=== PATIENT | female | born 1965 | race Caucasian/White ===

== ENCOUNTER 2020-09-26 18:42 | Outpatient (REF) | payer OTHER, SELFPAY | END 2020-09-26 18:43 | disposition home or self-care (01) | LOC: HO.LNP 18:42 | PROVIDERS: Visit Provider Physician Assistant | DX: N39.0 Urinary tract infection, site not specified (principal) | CPT/HCPCS: 87086 ==

== ENCOUNTER 2022-12-03 13:43 | Outpatient (REF) | payer SELFPAY ==
[2022-12-03 18:51] LABS: MANUAL DIFF FLAG NO
[2022-12-03 18:53] LABS: Basophils Percent Auto 0.5 % (0-2); Eosinophils Absolute Auto 0.1 X10*3/uL (0.0-0.4); Eosinophils Percent Auto 1.9 % (0-4); Imm Gran Abs Auto 0.01 X10*3/uL (0.00-0.03); Imm Gran Pct Auto 0.2 % (0.0-0.4); Lymphocytes Absolute Auto 1.6 X10*3/uL (1.2-4.9); Lymphocytes Percent Auto 27.3 % (20-40); Mean Corpuscular HGB Conc 32.5 g/dl (31.0-35.0); Mean Corpuscular Hemoglobin 29.5 pg (27.0-33.0); Mean Corpuscular Volume 90.9 fL (80.0-98.0); Mean Platelet Volume 12.7 fL (9.4-12.3); Monocytes Absolute Auto 0.4 X10*3/uL (0.1-1.2); Monocytes Percent Auto 7.3 % (2-11); Neutrophils Absolute Auto 3.6 x10*3/uL (2.0-8.3); Neutrophils Percent Auto 62.8 % (45-73); Platelet Count 227 X10*3/uL (160-400); Red Cell Distribution Width 12.9 % (11.0-16.0); White Blood Count 5.7 X10*3/uL (4.8-10.8)
[2022-12-03 19:16] LABS: Alanine Aminotransferase 39 U/L (0-31); Albumin Level 4.7 g/dL (3.5-5.0); Alkaline Phosphatase 62 U/L (39-117); Anion Gap 15 (12-20); Aspartate Amino Transferase 30 U/L (5-31); Bilirubin Total 0.7 mg/dL (0.0-1.0); Blood Urea Nitrogen 15 mg/dL (9-16); Calcium 10.5 mg/dL (8.4-10.2); Carbon Dioxide 25 mmol/L (22-29); Chloride 107 mmol/L (96-108); Estimated Glomerular Filt Rate > 60; Glucose Random 87 mg/dL (60-115); Potassium 4.3 mmol/L (3.3-5.1); Sodium 143 mmol/L (135-145); Total Protein 7.5 g/dL (6.5-8.0)
[2022-12-03 19:32] LABS: Free T4 (Free Thyroxine) 1.25 ng/dL (0.71-1.85); Thyroid Stimulating Hormone 0.56 uIU/mL (0.32-4.0)
[2022-12-05 16:13] LABS: Follicle Stimulating Hormone 108.8 mIU/mL; Lutenizing Hormone 68.3 mIU/mL
== END 2022-12-03 13:44 | disposition home or self-care (01) ==
LOC: HO.MANLDS 13:43
PROVIDERS: Visit Provider Physician Assistant
DX: R61 Generalized hyperhidrosis (principal)
CPT/HCPCS: 36415; 80053; 83001; 83002; 84439; 84443; 85025

== ENCOUNTER 2023-08-19 08:30 | Outpatient (REF) | payer OTHER, SELFPAY ==
[2023-08-19 13:30] LABS: D Dimer High Sensitivity < 150 NG/ML
[2023-08-19 14:10] LABS: Parathyroid Hormone Intact 44.9 pg/mL (8.7-77.1)
[2023-08-19 14:15] LABS: Alanine Aminotransferase 23 U/L (0-31); Albumin Level 4.3 g/dL (3.5-5.0); Alkaline Phosphatase 68 U/L (39-117); Amylase 47 U/L (28-100); Anion Gap 12 (12-20); Aspartate Amino Transferase 21 U/L (5-31); Bilirubin Total 0.8 mg/dL (0.0-1.0); Blood Urea Nitrogen 18 mg/dL (9-16); Calcium 9.7 mg/dL (8.4-10.2); Carbon Dioxide 25 mmol/L (22-29); Chloride 108 mmol/L (96-108); Estimated Glomerular Filt Rate > 60; Gamma Glutamyl Transpeptidase 31 U/L (7-33); Glucose Random 84 mg/dL (60-115); Iron 90 mcg/dL (30-160); Lipase 18 U/L (8-78); Percent Iron Saturation 35 % (15-50); Potassium 3.9 mmol/L (3.3-5.1); Sodium 141 mmol/L (135-145); Total Iron Binding Capacity 256 mcg/dL (228-428); Total Protein 7.2 g/dL (6.5-8.0); Unsaturated Iron Binding 166 ug/dL
[2023-08-19 14:36] LABS: Ferritin 246 ng/mL (10-250); Free T4 (Free Thyroxine) 1.16 ng/dL (0.71-1.85); Thyroid Stimulating Hormone 1.11 uIU/mL (0.32-4.0)
[2023-08-25 16:24] LABS: NT-proBNP 114 pg/mL (<125)
== END 2023-08-19 08:31 | disposition home or self-care (01) ==
LOC: HO.MANLDS 08:30
PROVIDERS: Visit Provider Physician Assistant
DX: R07.89 Other chest pain (principal)
CPT/HCPCS: 36415; 80053; 82150; 82728; 82977; 83540; 83690; 83880; 83970; 84439; 84443; 85379

== ENCOUNTER 2025-05-07 09:33 | Outpatient (REF) | payer OTHER, SELFPAY ==
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
--- OUTSIDE RECORDS SUMMARY | 2025-05-07 10:20 | XMS_ITS | Encounter Summary ---
Author Organization [facility] Address [address] [place] [address] Phone Care Team Providers Care Tire Recapping Machine Operator Name Role Phone Figueroa Rudolph DO Primary Care Provider [phone] Encounter Details Date Type Department Care Team (Late st Contact Info) Description 01/11/2022 Procedure Pass [address] [address] Social History Tobacco Use Types Packs/Day Years Used Date Smoking Tobacco: Former Cigarettes Q uit: 1992 Smokeless Tobacco: Never Alcohol Use Standard Drinks/Week Comments Yes 2 (1 standard drink = 0.6 oz pur e alcohol) Comments No Sex and Gender Information Value Date Recorded Sex Assigned at Not on file Legal Sex Female 9:41 PM EDT Gender Identity Not on file Sexual Orientation Not on file documented as of this encounter Plan of Treatment Upcoming Encounters Date Type Department Care Team (Late st Contact Info) Description 10/31/2024 Procedure Pass [address] [address] 05/28/2025 9:30 AM EST Appointment [address] [address] Figueroa Rudolph, DO [address] [place] [address] documented as of this encounter Visit Diagnoses Not on filedocumented in this encounter Additional Health Concerns Infection Onset Date Last Indicated Resolved Time CoV-Risk 09/23/2022 09/23/2022 09/24/2022 4:03 PM EDT COVID-19 09/23/2022 09/23/2022 10/14/2022 1:21 AM EDT documented as of this encounter Care Teams Tire Recapping Machine Operator Relationship Specialty Start Date End Date Figueroa Rudolph [email or web address] PCP - General 06/09/17 documented as of this encounter Additional Source Comments The information contained in this document represents components of the legal health record. It is not the complete legal health record.[facility]
--- OUTSIDE RECORDS SUMMARY | 2025-05-07 10:20 | XMS_ITS | Encounter Summary ---
Author Organization [facility] Address [address] [address] Phone Care Team Providers Care Router Operator Radial Name Role Phone Figueroa Rudolph DO Primary Care Provider [phone] Encounter Details Date Type Department Care Team ([facility] st Contact Info) Description 09/08/2023 Transcribe Orders Virtual Department [address] [place] [address] Figueroa Rudolph DO [address] [facility] [address] [email or web address] Breast screening (Primary Dx) Social History Tobacco Use Types Packs/Day Years Used Date Smoking Tobacco: Former Cigarettes Q uit: 1993 Smokeless Tobacco: Never Alcohol Use Standard Drinks/Week [...] st Contact Info) Description 10/31/2024 Procedure Pass [address] [address] 05/28/2025 9:30 AM EST Appointment [address] [address] Figueroa Rudolph, DO [address] [facility] [place] [address] [email or web address] documented as of this encounter Results * BI MAMMOGRAM SCREENING WITH TOMOSYNTHESIS WITH CAD (BILATERAL) (11/21/2023 3:15 PM EDT) Anatomical Region Laterality Modality Breast Left, Breast Right, Breast Bilateral Bila teral Mammography 11/22/2023 2:05 PM EDT Impressions 11/22/2023 3:00 PM EDT No mammographic evidence of malignancy in either breast. Annual screening mammography is recommended. BI-RADS 1 NEGATIVE The patient will be notified of the results and recommendations. Narrative 11/22/2023 3:00 PM EDT BI MAMMOGRAM SCREENING WITH TOMOSYNTHESIS WITH CAD (BILATERAL) Additional patient information: Screening. COMPARISON: Comparison is made with relevant prior imaging. Breast composition: The breast tissue is heterogeneously dense which may obscure small masses. FINDINGS: No abnormal masses, suspicious calcifications, or other significant findings are identified mammographically in either breast. Procedure Note Joann Chung MD - 11/22/2023 BI MAMMOGRAM SCREENING WITH TOMOSYNTHESIS WITH CAD (BILATERAL) Additional patient information: Screening. COMPARISON: Comparison is made with relevant prior imaging. Breast composition: The breast tissue is heterogeneously dense which mayobscure small masses. FINDINGS: No abnormal masses, suspicious calcifications, or other significantfindings are identified mammographically in either breast. IMPRESSION: No mammographic evidence of malignancy in either breast. Annual screening mammography is recommended. BI-RADS 1 NEGATIVE The patient will be notified of the results and recommendations. us Figueroa Rudolph DO IMG MG EXAMS Final Result documented in this encounter Visit Diagnoses Diagnosis Breast screening- Primary Breast screening, unspecified Breast screening Breast screening, unspecified documented in this encounter Care Teams Router Operator Radial Relationship Specialty Start Date End Date Figueroa Rudolph DO PCP - General 06/09/17 documented as of this encounter Additional Source Comments The information contained in this document represents components of the legal health record. It is not the complete legal health record.[facility]
--- OUTSIDE RECORDS SUMMARY | 2025-05-07 10:20 | XMS_ITS | Data Portability ---
Author Organization [facility] Telehealth Patient Home Address [address] [place] [address] Assessment Encounter Date Assessment Date Assessment LastModified by Organization Details LastModified Time 08/17/2023 08/17/2023 Patient agreed and verbally consents to this audio and video Telehealth appt via a secure platform [email or web address] Not available 08/17/2023 15:17:04 Plan of Treatment Reminders Order Date Submit Date Provider Last Modified By Organization Details Last Modified Time Details Appointments ANNUAL EXAM 2024 09:00A M RANDALL STEWART Not available Not available Not available ANNUAL EXAM 2025 09:00A M RANDALL STEWART Not available Not available Not available Lab CMP, serum or plasma 2024 025 [facility], [address] [place] [address], [id number], 05/07/2025 09:30:51 CBC w/ auto diff 2024 025 [facility], [address] [place] [address], [id number], 05/07/2025 09:30:50 lipid panel, blood 2024 025 [facility], [address] [place] [address], [id number], 05/07/2025 09:30:51 hemoglobi n A1c, QN, blood 2024 025 [facility], [address] [place] [address], [id number], 05/07/2025 09:30:51 pro BNP (pro B-type natriuret ic peptide), serum or plasma 2023 [facility], [address] [place] [address], [id number], 08/26/2023 11:17:16 D-dimer, quant, plasma 2023 [facility], [address] [place] [address], [id number], 08/17/2023 15:21:54 iron + TIBC + ferritin, serum 2023 [facility], [address] [place] [address], [id number], 08/17/2023 15:21:54 CMP, serum or plasma 2023 [facility], [address] [place] [address], [id number], 08/22/2023 11:28:29 amylase + lipase, serum 2023 [facility], [address] [place] [address], [id number], 08/17/2023 15:21:54 gamma-glu tamyl transfera se (ggt), serum 2023 [facility], [address] [place] [address], [id number], 08/17/2023 15:21:54 PTH (parathyr oid hormone), intact + calcium, serum or plasma 2023 [facility], [address] [place] [address], [id number], 08/17/2023 15:21:54 TSH + free T4, serum 2023 024 [facility], [address] [place] [address], [id number], 08/17/2023 15:21:54 CBC w/ auto diff 2022 023 [facility], [address] [place] [address], [id number], 12/03/2022 12:40:39 TSH, serum or plasma 2022 023 [facility], [address] [place] [address], [id number], 12/03/2022 12:40:39 lh + FSH, serum 2022 023 [facility], [address] [place] [address], [id number], 12/03/2022 12:40:39 FSH (follicle -stimulat ing hormone), serum 2022 023 [facility], [address] [place] [address], 76528, 12/03/2022 12:40:39 CMP, serum or plasma 2022 023 [facility], [address] [place] [address], [id number], 12/06/2022 13:39:54 TSH + free T4, serum 2022 023 [facility], [address] [place] [address], [id number], 12/03/2022 12:40:39 Referral None recorded. Procedures None recorded. Surgeries None recorded. Imaging CT, chest, w/o contrast 2023 024 [email or web address] Not available 08/22/2023 08:21:40 MAMMO, screening , digital, bilateral 2022 023 [email or web address] Not available 04/18/2023 08:37:08 Medication Orders None recorded. Patient TargetsNo targets recorded. Patient InstructionsNo instructions recorded. Reason for Referral None Reported. Results Created Date Observation Date Name Description Value Unit Range Abnormal Flag Note LastModifiedBy Organization Detail LastModifiedTime 09/08/19 24 09/08/2023 exerc ise stres s test No observ ation record ed. [facility] [place] [address], [place], [address], 09/12/2023 14:04:22 09/22/19 24 09/22/2023 pharm acolo gic nucle ar stres s test No observ ation record ed. [facility] (Scheduling Dept) [address] [place] [address], [id number], 09/26/2023 08:48:16 09/28/19 24 09/28/2023 pharm acolo gic nucle ar stres s test No observ ation record ed. [email or web address] [place] [address] (Scheduling Dept) [address] [place] [address], [address], 09/28/2023 13:44:25 11/22/19 24 11/21/2023 MAMMO , scree savana, digit al, bilat eral No observ ation record ed. [address], [address], 11/22/2023 15:56:56 Result Notes Documentation Provider Name and Address Organization Details Recorded Time Cbc W/ Diff : bmp Figueroa Rudolph DO [address] [place], [address], [facility] 08/17/2023 08:12:10 Lab* : d-dimer Figueroa Rudolph DO [address] [place], [address], [facility] 08/17/2023 08:12:34 Problems Name Problem SNOMED Code Status Onset Date Resolution Date Notes Provider Name and Address Organization Details Recorded Time Ventricu lar prematur e beats 94859701 Active 2018 [facility] 15:50:52 History of chickenp ox 228897254 Active 2018 [facility] 15:53:23 Normal grief reaction 537056359 Active 2022 RANDALL STEWART [address] [place], [address], [facility] 3 14:31:18 Insomnia 237854849 Active 2022 RANDALL STEWART [address] [place] [address], [address], [facility] 3 14:31:35 Night sweats 19893001 Active 2022 RANDALL STEWART [address] [place] [address], [address], [facility] 3 12:30:52 Atypical chest pain 139661468 Active 2023 RANDALL STEWART [address] [place] [address], [address], [facility] 4 15:13:41 Cardiova scular stress test abnormal 958442517 Active 2023 RANDALL STEWART [address] [place] [address], [address], [facility] 4 11:13:02 Electroc ardiogra m abnormal 274920497 Active 2023 RANDALL STEWART [address] [place] [address], [address], [facility] 4 14:04:38 Problem Notes None recorded. Procedures Surgical History Date Name Laterality Status Provider Name and Address Organization Details Recorded Time 08/29/19 19 Colonoscopy completed Hanna Bergman [facility] 08/29/2018 08:59:47 09/05/19 18 Most Recent Mammogram completed Ashley Mcimllan NP, S [address] [place] [address], [address], [facility] 08/08/2018 09:38:54 06/06/19 17 Date of Last Pap Smear completed Ashley Mcmillan NP, S [address] [place] [address], [address], [facility] 08/08/2018 09:37:52 Breast Biopsy completed Ashley wheeler NP, S [address] [place] [address], [address], [facility] 08/08/2018 09:37:30 extraction of wisdom tooth completed Ashley Mcmillan NP, S [address] [place] [address], [address], [facility] 08/08/2018 09:40:52 Imaging Results None recorded. Procedure Notes None recorded. Medical Equipment None Reported. Allergies Allergen ID Allergen Name Allergen Category Reaction Reaction Severity Criticality Documentation Date Start Date Code Code System Note Provider Name and Address Organization Details Recorded Time 00195 honey bee venom environme nt Not available Not available Not available 05/07/20252023 19311 7 RxNorm Not Available liza - External Data Service - prod 03:44:46 No known drug allergies Medications Name Sig Start Date Stop Date Status Note LastModified by Organization Details LastModified Time amoxicillin 500 mg capsule Take 1 capsule every 8 hours by oral route for 10 days. 05/14 completed Not Available Not Available Not Available doxycycline hyclate 100 mg capsule 01/27 completed Not Available Not Available Not Available Anucort-HC 25 mg suppository 04/01 completed Not Available Not Available Not Available sulfamethox azole 800 mg-trimetho prim 160 mg tablet TAKE 1 TABLET BY MOUTH EVERY 12 HOURS FOR 7 DAYS 01/06 completed Not Available Not Available Not Available hydrocortis one 2.5 % topical cream with perineal applicator APPLY RECTALLY TO THE AFFECTED AREA TWICE DAILY 11/15 completed Not Available Not Available Not Available cephalexin 500 mg capsule TAKE 1 CAPSULE BY MOUTH THREE TIMES DAILY FOR 5 DAYS 11/15 completed Not Available Not Available Not Available diclofenac sodium 75 mg tablet,joselin yed release TAKE 1 TABLET BY MOUTH TWICE DAILY WITH MEALS FOR 14 DAYS 04/01 completed Not Available Not Available Not Available intrauterin e device (IUD) Take by intrauter ine route. 05/07 completed Not Available Not Available Not Available Vitals Date Recorded Body height Body mass index (BMI) Body weight Heart rate Oxygen saturation Systolic And Diastolic Provider Name and Address Organization Details Last Updated DateTime 3 157.48 cm 24.9 kg/m2 64937.5 6 g 94 /min 99 % 140/90 mm[Hg] Chyna Ross [facility] 3 11:59:11 Date Recorded Body height Body mass index (BMI) Body weight Heart rate Oxygen saturation Systolic And Diastolic Provider Name and Address Organization Details Last Updated DateTime 3 157.48 cm 24.7 kg/m2 33396.3 3 g 72 /min 99 % 130/82 mm[Hg] Katrin Girard [facility] 3 10:04:42 Date Recorded Body height Body mass index (BMI) Body weight Heart rate Oxygen saturation Systolic And Diastolic Provider Name and Address Organization Details Last Updated DateTime 4 157.48 cm 24.8 kg/m2 07575.4 8 g 78 /min 97 % 114/78 mm[Hg] America Lindquist [facility] 4 09:07:32 Date Recorded Body height Body mass index (BMI) Body weight Heart rate Oxygen saturation Systolic And Diastolic Provider Name and Address Organization Details Last Updated DateTime 5 157.48 cm 24.7 kg/m2 52388.9 7 g 70 /min 98 % 120/70 mm[Hg] Chyna Ross [facility] 5 09:00:49 Social History Question Answer Notes LastModified by Organizat ion Details LastModified Time Tobacco Smoking Status Former Smoker smoked in high school Kalegih hernandez [facility] 08/08/2018 09:33:48 What Was The Date Of Your Most Recent Tobacco Screening? 05/07/2025 [email or web address] Information not available 05/07/2025 Sex: Female Functional Status None recorded. Mental Status None recorded. Family History Relationship Description Onset Age of this Age Resolved Age Notes LastModified by Organization Details LastModified Time Mother Malignant neoplasm of breast 67 [email or web address] Not available 2018 15:55:32 Father Depressive disorder 65 [email or web address] Not available 2018 15:55:56 Father Suicide 65 [email or web address] Not available 08/07/2018 15:56:43 Maternal Grandmother Myocardial infarction tbalicki Not available 08/07 15:57:06 Paternal Grandmother Myocardial infarction tbalicki Not available 08/07 16:00:07 Medical History Condition Response Coronary Artery Disease N Gout N Kidney Stones N Blood Diseases N Hyperthyroidism N Blood Transfusion N COPD N Depression N Anxiety Disorder N Muscle, Joint, or Bone Problems N Obesity N Arthritis N Infertility N Cancer N Varicosities N Stroke N Headaches N Fibromyalgia N Kidney Disease N Heart Problems N Eating Disorder N Skin Problems N Constipation N Tuberculosis N Asthma N Hepatitis N Pulmonary Embolism N Chicken Pox Y Breast Cancer N Hypothyroidism N Defects or Inherited Disease N Difficulty Swallowing N Anesthesia Complications N Bladder or Kidney Problems N High Cholesterol N Liver Disease N Allergies/Hayfever Y Thyroid Problems N GI Problems N Anemia N Diabetes N Seizures/Epilepsy N Congestive Heart Failure (CHF) N Eczema N Abuse/Domestic Violence N Diverticulitis N Reflux/GERD N Heart Disease N Hypertension N Gynecological History Statement/Question Response If Post Menopausal, Age at Menopause Abnormal Pap N HPV Vaccine N Date of Last Pap Smear 06/06/2016 Most Recent Mammogram 09/04/2017 Age at Menarche 14 Age at First Child 28 Obstetrics History GPAL:G 0 P 0 0 0 0 Past Encounters Encounter ID Performer Location Encounter Start Date Encounter Closed Date Diagnosis/Indication Diagnosis SNOMED-CT Code Diagnosis ICD10 Code Diagnosis IMO Codes Diagnosis Note [id number] Figueroa Rudolph DO [facility] [address] [place] [address] 08/08/2018 09:22:02 08/08/2018 11:38:06 Adult health examination 278598675 Z00.00 Active or passive immunization 316264498 Z23 Screening procedure 2012 5006 Z13.9 [id number] Figueroa Rudolph [facility] [address] [place] [address] 09/22/2018 10:09:22 09/22/2018 12:19:38 Acute pharyngitis 785655125 J02.9 given progressiv e nature of her symptoms and lack of any nasal viral symptoms i believe this is a bacterial will tx with amox [id number] Figueroa Rudolph [facility] [address] [place] [address], [facility] [place] [address] 05/14/2019 16:33:03 05/14/2019 16:58:50 Plantar fasciitis of right foot 2973700212 5471457 M72.2 Bursitis and fasciitis on right ongoing for several months [id number] Figueroa Rudolph [facility] [address],[place] [address] 01/28/2020 09:15:43 01/28/2020 09:54:08 Adult health examination 804439152 Z00.00 no concerns today Active or passive immunization 729929284 Z23 will set her up for shingrix series at pharmacy [id number] Figueroa TellezRosita Rudolph [facility] [address], ite [place] [address] 09/26/2020 14:49:38 09/29/2020 08:41:11 Acute urinary tract infection 675752880 N39.0 Dipstick has bacteria in it with blood given symptoms will treat for UTI [id number] Figueroa Fonseca Klaudia [facility] [address],[place] [address] 01/06/2021 13:49:12 01/06/2021 14:23:23 Left lateral elbow tendinopathy 2845190273 86785 M77.12 fu if no improvemen t [id number] Figueroa Zhangkraig [facility] [address],[place] [address] 11/15/2022 14:01:19 11/15/2022 15:40:38 Normal grief reaction 464933707 F43.21 following with her therapist Insomnia 839638495 G47.0 1 agreed to trying valerian root and melatonin [id number] Figueroa Raymundo Rudolph [facility] [address], [place] [address] 12/03/2022 11:53:19 12/06/2022 08:07:16 Night sweats 77245556 R61 per her specialist , f/u with lab work due to night sweats Normal grief reaction 27 2336473 F43.21 following with her therapistd oing well with her right night [id number] Figueroa Rudolph [facility] [address] [facility] [address] [address] 04/01/2023 09:59:19 04/01/2023 13:22:37 Normal grief reaction 477609525 F43.21 doing well Screening mammography 24 994903 Z12.31 need to routine MM Adult [facility] examination 113870972 Z00.00 no concerns today [id number] Figueroa Rudolph [facility] [address] [facility] [address],[place] [address] 08/17/2023 11:12:08 08/17/2023 15:20:57 Atypical chest pain 514470075 R07.89 will set up with lab work and CT chest pain [id number] Figueroa Rudolph [facility] [address] [facility] [address],[place] [address] 04/09/2024 09:01:57 04/09/2024 09:26:19 Active or passive immunization 610154709 Z23 will set her up for shingrix series at pharmacy [facility] examination 183053290 Z00.00 no concerns today Depression screening 171 142138 Z13.31 SCREENING NEGATIVE [id number] Figueroa Zhangkraig [facility] [address] [facility] [address],[place] [address] 05/07/2025 08:53:49 05/07/2025 09:30:23 General examination of patient 026830210 Z00.00 320520 no concerns today Health Concerns Section Related Observation LastModified by Organization Detai ls LastModified Time None Recorded Concern Status LastModified by Organization Details LastModified Time None Recorded Advance Directives Directive None Recorded Payers Insurance Date Sequence Insurance Name Policy Number Policy Dasilva Covered Member ID Dasilva Member ID Guarantor Name 05/06/[address] [place] [address] [id number] Carly Liang [id number] Carly Liang Notes Date Note Type Note Provider Name a nd Address Organization Details Recorded Time 3 text/html ROS as noted in the HPI 3 week f/u the patient is doing okay the patient is still dealing with grief and her anger with her who from an [place] and was found after the fact to have been cheating on her with multiple partners discussed her mood; she is coping pretty well given the circumstancesshe does have a good support system with her friends pt children is not aware of the circumstances around his discussed her feelings around the patient's deathdoes feel very resentful which is normal brought his records from the hospital she was given just to discuss her feeling better with some medical info prior to his overall working with her therapist which is helping tremendously RANDALL STEWART [address] [place], [address], [facility] 12/03/2022 12:49:27 3 text/html Annual WellnessReported by PatientSocial/Behavio ral HistoryFor diet and nutrition, patient reportshealthy diet. For fracture risk, patient reportsno history of fractures,no recent explained fracture,no sudden unexplained fractures, andno previous musculoskeletal injuries. For physical activity, patient reportsexercises on a regular basis,recent increase in physical activity, andgood physical condition. For additional lifestyle factors, patient reportsno tobacco use,no alcohol intake, andstopped drinking alcohol.Mental Status:For depression risk, patient reportsnever feels sad, empty, or tearful,no loss of interest in activities,no significant changes in weight,no sleep disturbances or insomnia,no agitation,no loss of energy,no feelings of worthlessness or guilt,no thoughts of suicide,no history of depression, andno history of mood disorders.Functional AbilityFor hearing, patient reportsno loss of hearing. For vision, patient reportsno vision problems.ROS as noted in the HPI f/u appointment anxiety and depression the patient's mother just diedshe is doing okay, her mother was 100 years old she is working with her therapistdoes have a cold, but COVID-19 negative needs screening MMdoing well sleeping okay RANDALL STEWART [address] [place], [address], [facility] 04/01/2023 10:30:06 4 text/html ROS as noted in the HPI ER f/u The patient is participating in this appointment via telemedicine communication with a phone call/video calling service (Doxy)The patient consents to use of these platforms in place of an in-person appointment due to either sick symptoms the patient is presenting with or current office closure due to COVID exposure in order to keep our office staff and patients safe the patient flew back from [place], then developed chest pain while she was laying in bedthe patient reports that it felt lke a pressure on the center of her chest, no other symptoms went to the ERMI r/o was negativeno signs or results suggestive of cardiac pathology worsened with bending over, laying flat the patient reports that the pain is above her bilateral breasts the patient only had the symptoms last nightnothing in [place] RANDALL STEWART [address] [place], [address], [facility] 08/17/2023 15:19:54 4 text/html Annual WellnessReported by PatientSocial/Behavio ral HistoryFor diet and nutrition, patient reportshealthy diet,discussed vitamin and supplement use,discussed portion control,discussed maintaining calcium balance, anddiscussed diet improvement. For fracture risk, patient reportsno history of fractures,no recent explained fracture,no sudden unexplained fractures, andno previous musculoskeletal injuries. For physical activity, patient reportsexercises on a regular basis,recent increase in physical activity, andgood physical condition. For additional lifestyle factors, patient reportsno tobacco useanddrinks alcohol (mild-moderate).Menta l Status:For depression risk, patient reportsnever feels sad, empty, or tearful,no loss of interest in activities,no significant changes in weight,no sleep disturbances or insomnia,no agitation,no loss of energy,no feelings of worthlessness or guilt,no thoughts of suicide,no history of depression, andno history of mood disorders.Functional AbilityFor hearing, patient reportsno loss of hearing. For vision, patient reportsno vision problems.ROS as noted in the HPI the patient reports that her mood as been the patient reports that she had her blepharoplasty which went very wellfinished with her post-op visitations she still has some anger related to her but otherwise is finding trinh again in her life RANDALL STEWART [address] [place], [address], [facility] 04/09/2024 09:25:52 5 text/html Annual WellnessReported by PatientSocial/Behavio ral HistoryFor diet and nutrition, patient reportshealthy diet,discussed vitamin and supplement use,discussed portion control,discussed maintaining calcium balance, anddiscussed diet improvement. For fracture risk, patient reportsno history of fractures,no recent explained fracture,no sudden unexplained fractures, andno previous musculoskeletal injuries. For physical activity, patient reportsexercises on a regular basis,recent increase in physical activity,good physical condition,discussed weightbearing activities, anddiscussed exercise habits. For additional lifestyle factors, patient reportsno tobacco useanddrinks alcohol (mild-moderate).Menta l Status:For depression risk, patient reportsnever feels sad, empty, or tearful,no loss of interest in activities,no significant changes in weight,no sleep disturbances or insomnia,no agitation,no loss of energy,no feelings of worthlessness or guilt,no thoughts of suicide,no history of depression, andno history of mood disorders.Functional AbilityFor hearing, patient reportsno loss of hearing. For vision, patient reportsno vision problems.ROS as noted in the HPI BP is excellent MM scheduled 05/28/25 RANDALL STEWART [address] [place], [address], [facility] 05/07/2025 09:28:35 OBGyn Episode No OBEpisode recorded.
--- OUTSIDE RECORDS SUMMARY | 2025-05-07 10:20 | XMS_ITS | Encounter Summary ---
Author Organization [facility] Address [address] [facility] [address] [place] [address] Phone Care Team Providers Care Poultry Hatchery Man Name Role Phone Figueroa Rudolph DO Unavailable Dimple Mckeon LIQUOR STORES AND AGENCIES SUPERVISOR Unavailable [phone] Kemar Molina MD Unavailable [phone] Sravani Gutiérrez LIQUOR STORES AND AGENCIES SUPERVISOR Unavailable [phone] Bigg Romero MD Unavailable White EarthAna klein DO Unavailable Lan Oropeza MD Unavailable [phone] Arnoldo Jones MD Unavailable [phone] Clotilde Mclaughlin MD Unavailable Figueroa Rudolph DO Primary Care Provider [phone] Encounter Details Date Type Department Care Team (Late st Contact Info) Description 09/19/2017 Ancillary Orders [facility] [address] [place] [address] Jose Solomon MD [address] [facility], [address] [place] [address] [email or web address] Abnormal mammogram Social History Tobacco Use Types Packs/Day Years Used Date Smoking Tobacco: Former Cigarettes Q uit: 1993 Smokeless Tobacco: Never Alcohol Use Standard Drinks/Week Comments Yes 0 (1 standard drink = 0.6 oz pur e alcohol) Comments No Sex and Gender Information Value Date Recorded Sex Assigned at Not on file Legal Sex Female 9:41 PM EDT Gender Identity Not on file Sexual Orientation Not on file documented as of this encounter Plan of Treatment Upcoming Encounters Date Type Department Care Team (Late st Contact Info) Description 10/31/2024 Procedure Pass [address] [address] 05/28/2025 9:30 AM EST Appointment [address] [address] Figueroa Rudolph DO 179 [facility] [place] [address] [email or web address] documented as of this encounter Results * BI US BREAST LIMITED (RIGHT) (09/23/2017 2:04 PM EDT) Anatomical Region Laterality Modality Breast Right, Breast Bilateral Right U ltrasound 09/23/2017 1:32 PM EDT Impressions 09/23/2017 1:58 PM EDT Follow-up mammogram views and ultrasonography confirms the presence of a cyst in the area of concern evident on screening mammography. No adverse features are seen. No findings of concern for malignancy are evident. The patient can resume routine mammography. The results were given to the patient at the time of the examination. BI-RADS CATEGORY: 2 - Benign finding. DENSITY: The breast tissue is extremely dense, an appearance which could obscure a lesion on mammography. S/S: Developing density right breast, right breast cyst POS [id number] Narrative 09/23/2017 1:58 PM EDT Full field digital mammography was obtained with computer-aided detection. There is extremely dense fibroglandular tissue evident in the breast. 2-D C view images obtained as well as tomosynthesis images in two projections of the right breast. True lateral, spot compression craniocaudad and spot compression true lateral views of the right breast are obtained in 2-D and 3-D acquisitions. Comparison with prior imaging from 09/16/2017 is made with older imaging dating back as far as 10/06/2007 also reviewed. The exam is performed because of a new 1 cm density identified in the upper right breast. The 1 cm rounded density persists in the approximate 10 o'clock position of the right breast. The appearance is most consistent with a cyst. No associated calcifications are seen. No architectural distortion is evident. No skin changes are seen. Ultrasound of the area is subsequently obtained. In the 11 o'clock position approximately 2 to 3 cm from the nipple there is a 9 mm anechoic mass with through-transmission consistent with a simple cyst. This corresponds well in size and position with the finding on mammography. Other adjacent cysts are evident during scanning is well. us Jose Solomon MD IMG US BREAST Final Result * BI MAMMOGRAM DIAGNOSTIC WITH TOMOSYNTHESIS WITH CAD (RIGHT) (09/23/2017 1:27 PM EDT) Anatomical Region Laterality Modality Breast Right, Breast Bilateral Right M ammography 09/23/2017 1:32 PM EDT Impressions 09/23/2017 1:58 PM EDT Follow-up mammogram views and ultrasonography confirms the presence of a cyst in the area of concern evident on screening mammography. No adverse features are seen. No findings of concern for malignancy are evident. The patient can resume routine mammography. The results were given to the patient at the time of the examination. BI-RADS CATEGORY: 2 - Benign finding. DENSITY: The breast tissue is extremely dense, an appearance which could obscure a lesion on mammography. S/S: Developing density right breast, right breast cyst POS [id number] Narrative 09/23/2017 1:58 PM EDT Full field digital mammography was obtained with computer-aided detection. There is extremely dense fibroglandular tissue evident in the breast. 2-D C view images obtained as well as tomosynthesis images in two projections of the right breast. True lateral, spot compression craniocaudad and spot compression true lateral views of the right breast are obtained in 2-D and 3-D acquisitions. Comparison with prior imaging from 09/16/2017 is made with older imaging dating back as far as 10/06/2007 also reviewed. The exam is performed because of a new 1 cm density identified in the upper right breast. The 1 cm rounded density persists in the approximate 10 o'clock position of the right breast. The appearance is most consistent with a cyst. No associated calcifications are seen. No architectural distortion is evident. No skin changes are seen. Ultrasound of the area is subsequently obtained. In the 11 o'clock position approximately 2 to 3 cm from the nipple there is a 9 mm anechoic mass with through-transmission consistent with a simple cyst. This corresponds well in size and position with the finding on mammography. Other adjacent cysts are evident during scanning is well. us Jose Solomon MD IMG MG EXAMS Final Result documented in this encounter Visit Diagnoses Diagnosis Abnormal mammogram Abnormal mammogram, unspecified Abnormal mammogram Abnormal mammogram, unspecified Abnormal mammogram Abnormal mammogram, unspecified documented in this encounter Additional Health Concerns Infection Onset Date Last Indicated Resolved Time CoV-Risk 06/30/2021 06/30/2021 07/01/2021 4:29 PM EST CoV-Presumed 06/30/2021 06/30/2021 07/21/2021 1:22 AM EST CoV-Risk 09/23/2022 09/23/2022 09/24/2022 4:03 PM EDT COVID-19 09/23/2022 09/23/2022 10/14/2022 1:21 AM EDT documented as of this encounter Care Teams Poultry Hatchery Man Relationship Specialty Start Date End Date Figueroa Rudolph DO [address] [address] PCP - General 06/09/17 Figueroa Rudolph DO 179 [place] [address] Historical LMR Provider 03/21/17 06/13/21 Dimple Mckeon NP [address] [place] [address] Historical LMR Provider 03/21/17 2 Kemar Molina MD [address] [place] [address] [email or web address] Historical LMR Provider 03/21/17 06/13/21 Sravani Gutiérrez NP [address] [place] [address] [email or web address] Historical LMR Provider 03/21/17 2 Bigg Romero MD [address] [place] [address] [email or web address] Historical LMR Provider 03/21/17 06/13/21 Ana Law DO 30 [place] [address] Historical LMR Provider 03/21/17 2 Lan Oropeza MD [address] [place] [phone] Historical LMR Provider 03/21/17 2 Arnoldo Jones MD 61 [place] [address] Historical LMR Provider 03/21/17 2 Clotilde Mclaughlin MD [address] [address] [email or web address] Historical LMR Provider 03/21/17 06/13/21 documented as of this encounter Additional Source Comments The information contained in this document represents components of the legal health record. It is not the complete legal health record.[facility]
--- OUTSIDE RECORDS SUMMARY | 2025-05-07 10:20 | XMS_ITS | Encounter Summary ---
Author Organization [facility] Address [address] [place] [address] [place] [address] Phone Care Team Providers Care Official Court Interpreter Name Role Phone Figueroa Rudolph Primary Care Provider [phone] Encounter Details Date Type Department Care Team (Late st Contact Info) Description 09/08/2023 Procedure Pass [facility], [address] [address] Social History Tobacco Use Types Packs/Day Years Used Date Smoking Tobacco: Former Cigarettes 0.5 10 1 983 - 1993 Smokeless Tobacco: Never Alcohol Use Standard [...] st Contact Info) Description 10/31/2024 Procedure Pass [address] [address] 05/28/2025 9:30 AM EST Appointment [address] [address] Figueroa Rudolph DO 179 [facility] [place] [address] [email or web address] documented as of this encounter Visit Diagnoses Not on filedocumented in this encounter Care Teams Official Court Interpreter Relationship Specialty Start Date End Date Figueroa Rudolph DO [email or web address] PCP - General 06/09/17 documented as of this encounter Additional Source Comments The information contained in this document represents components of the legal health record. It is not the complete legal health record.[facility]
--- OUTSIDE RECORDS SUMMARY | 2025-05-07 10:20 | XMS_ITS | Encounter Summary ---
Author Organization [facility] Address [address] [place] [address] [place] [address] Phone Care Team Providers Care Dolly Driver Name Role Phone Figueroa Rudolph DO Unavailable Dimple Mckeon TEAMSITE DEVELOPER Unavailable Kemar Molina MD Unavailable [phone] Sravani Gutiérrez TEAMSITE DEVELOPER Unavailable [phone] Bigg Romero MD Unavailable Ana Law DO Unavailable Lan Oropeza MD Unavailable Arnoldo Jones MD Unavailable [phone] Clotilde Mclaughlin MD Unavailable Figueroa Rudolph DO Primary Care Provider [phone] Encounter Details Date Type Department Care Team (Late st Contact Info) Description 01/07/2021 Procedure Pass [facility], [facility] 30 [place] [address] Social History Tobacco Use Types Packs/Day Years [...] st Contact Info) Description 10/31/2024 Procedure Pass [address] [address] 05/28/2025 9:30 AM EST Appointment [address] [address] Figueroa Rudolph DO 179 [place] [address] [email or web address] documented as of this encounter Visit Diagnoses Not on filedocumented in this encounter Additional Health Concerns Infection Onset Date Last Indicated Resolved Time CoV-Risk 06/30/2021 06/30/2021 07/01/2021 4:29 PM EST CoV-Presumed 06/30/2021 06/30/2021 07/21/2021 1:22 AM EST CoV-Risk 09/23/2022 09/23/2022 09/24/2022 4:03 PM EDT COVID-19 09/23/2022 09/23/2022 10/14/2022 1:21 AM EDT documented as of this encounter Care Teams Dolly Driver Relationship Specialty Start Date End Date Figueroa Rudolph DO [address] [place] [address] PCP - General 06/09/17 Figueroa Rudolph DO 179 [place] [address] Historical LMR Provider 03/21/17 06/13/21 Dimple Mckeon NP [address] [place] [address] Historical LMR Provider 03/21/17 2 Kemar Molina MD [address] [place] [address] [email or web address] Historical LMR Provider 03/21/17 06/13/21 Sravani Gutiérrez NP 21 [place] [address] [email or web address] Historical LMR Provider 03/21/17 2 Bigg Romero MD [address] [address] [email or web address] Historical LMR Provider 03/21/17 06/13/21 Ana Law DO 30 [place] [address] Historical LMR Provider 03/21/17 2 Lan Oropeza MD [address] [place] [phone] Historical LMR Provider 03/21/17 2 Arnoldo Jones MD 61 [place] [address] Historical LMR Provider 03/21/17 2 Clotilde Mclaughlin MD [address] [address] [email or web address] Historical LMR Provider 03/21/17 06/13/21 documented as of this encounter Additional Source Comments The information contained in this document represents components of the legal health record. It is not the complete legal health record.[facility]
--- OUTSIDE RECORDS SUMMARY | 2025-05-07 10:20 | XMS_ITS | Encounter Summary ---
Author Organization [facility] Address [address] [facility] [address] [place] [address] Phone Care Team Providers Care Surveying Crew Rodman Name Role Phone Figueroa Rudolph DO Unavailable Dimple Mckeon HELICOPTER SPECIALIST Unavailable [phone] Kemar Molina MD Unavailable [phone] Sravani Gutiérrez HELICOPTER SPECIALIST Unavailable [phone] Bigg Romero MD Unavailable McalesterAna klein DO Unavailable Lan Oropeza MD Unavailable Arnoldo Jones MD Unavailable [phone] Clotilde Mclaughlin MD Unavailable Figueroa Rudolph DO Primary Care Provider [phone] Encounter Details Date Type Department Care Team (Late st Contact Info) Description 09/19/2017 Ancillary Orders [facility] [address] [place] [address] Jose Solomon MD 22 [facility], [address] [place] [address] Social History Tobacco Use Types Packs/Day Years [...] st Contact Info) Description 10/31/2024 Procedure Pass [address] [address] 05/28/2025 9:30 AM EST Appointment [address] [address] Figueroa Rudolph DO 179 [place] [address] documented as of this encounter Visit Diagnoses Not on filedocumented in this encounter Additional Health Concerns Infection Onset Date Last Indicated Resolved Time CoV-Risk 06/30/2021 06/30/2021 07/01/2021 4:29 PM EST CoV-Presumed 06/30/2021 06/30/2021 07/21/2021 1:22 AM EST CoV-Risk 09/23/2022 09/23/2022 09/24/2022 4:03 PM EDT COVID-19 09/23/2022 09/23/2022 10/14/2022 1:21 AM EDT documented as of this encounter Care Teams Surveying Crew Rodman Relationship Specialty Start Date End Date Figueroa Rudolph DO [address] [place] [address] PCP - General 06/09/17 Figueroa Rudolph DO 179 [place] [address] Historical LMR Provider 03/21/17 06/13/21 Dimple Mckeon NP [address] [place] [address] Historical LMR Provider 03/21/17 2 Kemar Molina MD [address] [place] [address] [email or web address] Historical LMR Provider 03/21/17 06/13/21 Sravani Gutiérrez NP 21 [place] [address] [email or web address] Historical LMR Provider 03/21/17 2 Bigg Romero MD [address] [place] [address] [email or web address] Historical LMR Provider 03/21/17 06/13/21 Ana Law DO 30 [place] [address] Historical LMR Provider 03/21/17 2 Lan Oropeza MD [address] [place] [phone] Historical LMR Provider 03/21/17 2 Arnoldo Jones MD 61 [place] [address] Historical LMR Provider 03/21/17 2 Clotilde Mclaughlin MD [address] [address] [email or web address] Historical LMR Provider 03/21/17 06/13/21 documented as of this encounter Additional Source Comments The information contained in this document represents components of the legal health record. It is not the complete legal health record.[facility]
--- OUTSIDE RECORDS SUMMARY | 2025-05-07 10:20 | XMS_ITS | Encounter Summary ---
Author Organization [facility] Address [address] [facility] [address] [place] [address] Phone Care Team Providers Care Speed Belt Sander Name Role Phone Figueroa Rudolph DO Primary Care Provider [phone] Encounter Details Date Type Department Care Team (Latest Contact Info) Description 08/30/2023 Transcribe Orders Virtual Department 30 [place] [address] Astrid Salas PA [address] [place] [address] [place] [address] Other chest pain (Primary Dx) Social History Tobacco Use Types [...] st Contact Info) Description 10/31/2024 Procedure Pass [address] [address] 05/28/2025 9:30 AM EST Appointment [address] [address] Figueroa Rudolph DO [address] [place] [address] [email or web address] documented as of this encounter Visit Diagnoses Diagnosis Other chest pain- Primary documented in this encounter Care Teams Speed Belt Sander Relationship Specialty Start Date End Date Figueroa Rudolph DO [email or web address] PCP - General 06/09/17 documented as of this encounter Additional Source Comments The information contained in this document represents components of the legal health record. It is not the complete legal health record.[facility]
--- OUTSIDE RECORDS SUMMARY | 2025-05-07 10:20 | XMS_ITS | Encounter Summary ---
Author Organization [facility] Address [address] [facility] [address] [place] [address] Phone Care Team Providers Care Office Rep Name Role Phone Figueroa Rudolph Rosalinda TURCIOS Primary Care Provider [phone] Reason for Referral * MRI/CAT Scan - Closed Specialty Diagnoses / Procedures Referred By Contbala t Referred To Contact Radiology Diagnoses Abnormal result of other cardiovascular function study Procedures NC Stress Result for Nuclear Stress Test Astrid Salas PA [address] [facility] [place] [address] Phone: tel: fax: Referral ID Status Reason Start Date Expiration Date Visits Re quested Visits Authorized [id number] Closed 09/22/2023 09/21/2024 1 1 Encounter Details Date Type Department Care Team (Latest Contact Info) Description 09/22/2023 Ancillary Orders Virtual Department 30 [place] [address] Astrid Salas PA [address] [facility] [place] [address] Abnormal result of other cardiovascular function study (Primary Dx) Social History Tobacco Use Types [...] st Contact Info) Description 10/31/2024 Procedure Pass [address] [address] 05/28/2025 9:30 AM EST Appointment [address] [address] Figueroa Rudolph, DO 179 [facility] [place] [address] documented as of this encounter Results * NC Stress Result for Nuclear Stress Test (09/22/2023 11:43 AM EDT) Max Predicted Heart Rate 162 bpm [facility] Max BP Systolic 152 mmHg [facility] Max BP Diastolic 68 mmHg [facility] Max HR 148 BPM [facility] Resting HR 76 BPM [facility] Resting BP Systolic 110 mmHg [facility] Resting BP Diastolic 72 mmHg [facility] Peak METS 13.4 METS [facility] Peak HR 148 BPM [facility] Anatomical Region Laterality Modality Heart Other 09/22/2023 9:55 AM EDT 09/22/2023 11:37 AM EDT Narrative 09/22/2023 3:23 PM EDT Stress Findings The resting heart rate was 76 BPM. The resting BP was 110/72 mmHg. A peak heart rate of 148 BPM (148 BPM of max predicted heart rate) was achieved. Max age of predicted heart rate was 162 bpm. ECG REPORT- Pt exercised for 10:22 min on a MARANDA protocol achieving 13.40 METS. Test terminated due to fatigue. Baseline resting HR was 76 bpm. Max heart rate achieved was 148 bpm (91% MPHR). 1. EKG - Baseline EKG showed sinus bradycardia. During exercise, there were up to 1mm horizontal ST depressions V3 through V6. 2. SYMPTOMS - No chest pain. 3. EXERCISE PHYSIOLOGY - High functional capacity for age. BP 110/72 at rest, BP 152/68 at peak exercise, BP 120/74 upon discharge from the stress lab. 4. ARRHYTHMIAS - Rare isolated PVC in recovery. Conclusion - Abnormal EKG portion of stress test with EKG evidence suggestive of ischemia and without symptoms concerning for angina. High functional capacity for age noted. Nuclear images pending and will be reported separately. See attached stress report for full details. Yeni Marroquin PA-C with Dr. Cruz Response to Stress The patient exercised for minutes and seconds, achieving 13.4 METS at peak exercise. Baseline blood pressure was 110/72 mmHg, and baseline heart rate was 76 bpm. The patient achieved a peak heart rate of 148 bpm, which is% of their maximum predicted heart rate. Astrid PEREIRA CV NM CARDIAC Final Resul t documented in this encounter Visit Diagnoses Diagnosis Abnormal result of other cardiovascular function study- Primary Abnormal result of other cardiovascular function study documented in this encounter Care Teams Office Rep Relationship Specialty Start Date End Date Figueroa Rudolph DO [email or web address] PCP - General 06/09/17 documented as of this encounter Additional Source Comments The information contained in this document represents components of the legal health record. It is not the complete legal health record.[facility]
--- OUTSIDE RECORDS SUMMARY | 2025-05-07 10:20 | XMS_ITS | Encounter Summary ---
Author Organization [facility] Address [address] [facility] [address] [place] [address] Phone Care Team Providers Care Gold Frame Assembler Name Role Phone Figueroa Rudolph Rosalinda TURCIOS Primary Care Provider [phone] Reason for Referral * MRI/CAT Scan - Closed Specialty Diagnoses / Procedures Referred By Contbala t Referred To Contact Radiology Diagnoses Abnormal result of other cardiovascular function study Procedures NC Myocardial Perfusion Pharmacologic Stress Multiple CHG MYOCARDIAL SPECT MULTIPLE STUDIES Astrid Salas PA [address] [facility] [place] [address] Phone: tel: fax: Referral ID Status Reason Start Date Expiration Date Visits Re quested Visits Authorized [id number] Closed 09/12/2023 11/11/2023 4 4 Encounter Details Date Type Department Care Team (Latest Contact Info) Description 09/12/2023 Transcribe Orders Virtual Department [address] [place] [address] Astrid Salas PA [address] [facility] [place] [address] Abnormal result of other cardiovascular function study [...] Contact Info) Description 10/31/2024 Procedure Pass [address] [address] 05/28/2025 9:30 AM EST Appointment [address] [address] Figueroa Rudolph, DO [address] [facility] [place] [address] [email or web address] documented as of this encounter Results * NC Myocardial Perfusion Pharmacologic Stress Multiple (09/22/2023 11:03 AM EDT) Anatomical Region Laterality Modality Heart, Vascular Nuclear Medicine 09/22/2023 1:24 PM EDT Impressions 09/22/2023 1:32 PM EDT No evidence of left ventricular ischemia. Normal left ventricular wall motion. Ejection fraction = 73%. POS -[id number] Narrative 09/22/2023 1:32 PM EDT HISTORY : Abnormal stress test. Question flow-limiting coronary artery disease. COMPARISON: None. TECHNIQUE: Single day study. Patient exercised following the protocol 10 minutes 22 seconds achieving heart rate elevation from 76 bpm up to 148 bpm, 91% maximal predicted heart rate. Exercise stopped due to fatigue. No diagnostic EKG changes. DOSE: Rest dose 10.1 mCi T c-99m sestamibi, Stress dose 30.3 mCi Tc-99m sestamibi FINDINGS: There appears to be normal distribution of tracer throughout the left ventricular myocardium on both stress and rest. Normal left ventricular wall motion noted. End diastolic volume 53 cc and end systolic volume 14 cc. Ejection fraction appears preserved, calculated at 73%. Stress Findings Max age of predicted heart rate was 162 bpm. Procedure Note Lam Salazar MD - 09/28/2023 HISTORY : Abnormal stress test. Question flow-limiting coronary arterydisease. COMPARISON: None. TECHNIQUE: Single day study. Patient exercised following the Bruceprotocol 10 minutes 22 seconds achieving heart rate elevation from 76 bpmup to 148 bpm, 91% maximal predicted heart rate. Exercise stopped due tofatigue. No diagnostic EKG changes. DOSE: Rest dose 10.1 mCi T c-99m sestamibi, Stress dose 30.3 mCi Tc-99msestamibi FINDINGS: There appears to be normal distribution of tracer throughout the leftventricular myocardium on both stress and rest. Normal left ventricular wall motion noted. End diastolic volume 53 cc andend systolic volume 14 cc. Ejection fraction appears preserved,calculated at 73%. IMPRESSION: No evidence of left ventricular ischemia. Normal left ventricular wallmotion. Ejection fraction = 73%. POS -[id number] Astrid PEREIRA CV NM CARDIAC Final Resul t documented in this encounter Visit Diagnoses Diagnosis Abnormal result of other cardiovascular function study- Primary Abnormal result of other cardiovascular function study documented in this encounter Care Teams Gold Frame Assembler Relationship Specialty Start Date End Date Figueroa Rudolph DO PCP - General 06/09/17 documented as of this encounter Additional Source Comments The information contained in this document represents components of the legal health record. It is not the complete legal health record.[facility]
--- OUTSIDE RECORDS SUMMARY | 2025-05-07 10:20 | XMS_ITS | Clinical Summary ---
Author Organization [facility] Address [address] [place] [address] Phone Care Team Providers Care Rotary Rig Engine Operator Name Role Phone Lauro Sparks Primary Care Provider [phone] Allergies Active Allergy Reactions Criticality Noted Date Comments Venom-Honey Bee 08/16/2023 Medications calcium carbonate (OS-KALLI) 1,500 mg (600 mg elemental) tablet 1 tablet with food daily Active multivitamins with iron-folic acid (CENTRUM COMPLETE) 18-400 mg-mcg Tab as directed daily Active Active Problems Problem Noted Date Diagnosed Date Night sweats 12/03/2022 03/02/2023 Insomnia 11/15/2022 03/02/2023 Changing skin lesion 11/11/2022 11/11/2022 Palpitations 11/11/2022 11/11/2022 History of chickenpox 08/07/2018 11/11/2022 Ventricular premature beats 08/07/2018 06/01/2023 IUD (intrauterine device) in place 08/16/2017 Assessment & Plan (08/16/2017 3:49 PM EDT): Mirena 03/18 Family history of breast cancer Overview (12/26/2019): Mother and sister Assessment & Plan (12/26/2019 2:02 PM EDT): Advised asking sister if BRCA tested; offered/ suggested med onc consult, declined for now Immunizations Immunization Administration Dates Next Due COVID-19 (Pre-10/23) Pfizer Vaccine, mRNA, PF Family History Medical History Relation Comments Hyperlipidemia Brother Suicide Father ALS Maternal Grandfather CV disease Maternal Grandmother Heart attack Maternal Grandmother Breast cancer Mother CV disease Paternal Grandmother Heart attack Paternal Grandmother Breast cancer Sister Hodgkins lymphoma Sister Hyperlipidemia Sister Relation Status Comments Brother Cousin Alive Father Maternal Grandfather Maternal Grandmother Mother Paternal Grandfather Paternal Grandmother Sister Social History Tobacco Use Types Packs/Day Years Used Date Smoking Tobacco: Former Cigarettes 0.5 10 1 1992 Smokeless Tobacco: Never Alcohol Use Standard [...] on file Sexual Orientation Not on file Last Filed Vital Signs Vital Sign Reading Time Taken Comments Blood Pressure 137/88 01/03/2024 2:57 PM EDT Pulse 80 01/03/2024 2:57 PM EDT Temperature 36.6 C (97.8 F) 01/03/2024 2:57 PM EDT Respiratory Rate 15 01/03/2024 2:57 PM EDT Oxygen Saturation 99% 01/03/2024 2:57 PM EDT Inhaled Oxygen Concentration - - Weight 60.8 kg (134 lb) 09/29/2023 1:35 PM EDT Height 158.8 cm (5' 2.5 ) 09/29/2023 1:35 PM EDT Body Mass Index 24.12 09/29/2023 1:35 PM EDT Plan of Treatment Upcoming Encounters Date Type Department Care Team (Late st Contact Info) Description 10/31/2024 Procedure Pass [address] [address] 05/28/2025 9:30 AM EST Appointment [address] [address] Lauro Sparks, [address] [place] [address] [email or web address] Health Maintenance Due Date Last Done Comments Adult Td,Tdap Booster 1965 DEPRESSION SCREENING 1977 SMOKING Hx and SMOKELESS TOBACCO SCREENING 1978 COLOGUARD 2010 FIT TEST 2010 FOBT 2010 SIGMOIDOSCOPY 2010 VIRTUAL COLONOSCOPY 2010 PNEUMOCOCCAL VACCINES (50+ years) (1 of 1 - PCV) 2015 ZOSTER VACCINES (1 of 2) 2015 LIPID PANEL 08/10/2023 08/09/2018 INFLUENZA VACCINE (#1) 2025 COVID-19 VACCINE ( season) 2025 06/26/2021, 09/19/2020, 08/29/2020 MAMMOGRAM 11/20/2025 11/21/2023, 01/04, 10/05/2018, Additional history exists COLONOSCOPY 08/28/2028 08/28/2018 COLORECTAL CANCER SCREENING 08/28/2028 PAP SMEAR 09/13/2028 09/14/2023, 08/04, 08/16/2017 RSV VACCINE (1 - 1-dose 75+ series) 2040 HEPATITIS C SCREENING Completed 11/11/2022 HIV ONE-TIME SCREENING (18-65 YEARS) Completed 11/11/2022 HEPATITIS A VACCINES Aged Out No long er eligible based on patient's age to complete this topic HIB VACCINES Aged Out No longer eligi ble based on patient's age to complete this topic MENINGOCOCCAL VACCINES (ACWY) Aged Out No longer eligible based on patient's age to complete this topic MENINGOCOCCAL VACCINES (B) Aged Out N o longer eligible based on patient's age to complete this topic Medical Devices Not on file Procedures Procedure Name Priority Date/Time Associated Diagnosis Comments BI MAMMOGRAM SCREENING WITH TOMOSYNTHESIS WITH CAD (BILATERAL) Routine 11/21/2023 3:15 PM EDT Breast screening PAP TEST Routine 09/14/2023 12:00 AM EDT HEPATITIS C ANTIBODY, QUALITATIVE Routine 11/11/2022 8:33 AM EDT Need for hepatitis C screening test ENDOSCOPY, COLON 08/28/2018 11:2 0 AM EDT LIPID PANEL Routine 08/09/2018 8:44 AM EST Routine general medical examination at a health care facility from Last 3 Months or Most Recently Relevant to Health Maintenance Results * BI MAMMOGRAM SCREENING WITH TOMOSYNTHESIS [...] notified of the results and recommendations. us Lauro A Bigda DO IMG MG EXAMS Final Result * Pap Test (09/14/2023 12:00 AM EDT) [place] [address] Date Puller: Clotilde Moore MD DENTAL ASSISTANT Cytology Report FINAL DIAGNOSIS A. PAP SMEAR (SUREPATH) CE: SPECIMEN ADEQUACY: Satisfactory for evaluation. INTERPRETATION: NEGATIVE FOR INTRAEPITHELIAL LESION OR MALIGNANCY. Atrophy. Electronically Signed Out By: JUANA Adams(ASCP) The Pap test is a screening test primarily for squamous cancers and precursors and has associated false-negative and false-positive results. New technologies such as liquid-based preparations may decrease but will not eliminate all false-negative results. Regular sampling and follow-up of unexplained clinical signs and symptoms are recommended to minimize false negative results. PROCEDURES/ADDENDA HPV Testing (Requested) Ordered Date: 09/15/2023 A. PAP SMEAR (SUREPATH) CE: Human Papilloma Virus Test NEGATIVE for high-risk Human Papilloma Virus types 16, 18, 45 and the Other high risk probe set (Includes 31, 33, 35, 39, 51, 52, 56, 58, 59, 66, 68) Note: Testing performed by [employer] HR-HPV analysis. Clinical correlation is advised. This HPV test was performed at [facility], [address] [place] [address]. This test has been FDA approved for both SurePath and ThinPrep cervical cytology specimens. The accuracy and precision of this test for all other specimen sources has been verified in the Cytopathology Laboratory of the [facility] and has not been cleared or approved by the U.S. Food and Drug Administration. Clinical correlation is advised. CLINICAL HISTORY Date of Last Menstrual Period: Not Provided Menstrual History: Post Menopausal Other Clinical Conditions: Screening Pap SPECIMEN SOURCE A: PAP SMEAR (SUREPATH) CE Patient Name: WILLIS BUTLER : 1965 (Age: 58) Sex: F Institution: [facility] Location: [facility] Date of Collection: 09/14/2023 Date of Reported: 09/22/2023 15:16 Results to: Connie Rodriguez MD [facility] Final Diagnosis A. PAP SMEAR (SUREPATH) CE: SPECIMEN ADEQUACY: Satisfactory for evaluation. INTERPRETATION: NEGATIVE FOR INTRAEPITHELIAL LESION OR MALIGNANCY. Atrophy. [facility] Results\Inter pretation A. PAP SMEAR (SUREPATH) CE: Human Papilloma Virus TestNEGATIVE for high-risk Human Papilloma Virus types 16, 18, 45 and the Other high risk probe set (Includes 31, 33, 35, 39, 51, 52, 56, 58, 59, 66, 68)Note: Testing performed by [employer] HR-HPV analysis. Clinical correlation is advised. This HPV test was performed at [facility], [address] [place] [address]. This test has been FDA approved for both SurePath and ThinPrep cervical cytology specimens. The accuracy and precision of this test for all other specimen sources has been verified in the Cytopathology Laboratory of the [facility] and has not been cleared or approved by the U.S. Food and Drug Administration. Clinical correlation is advised. [facility] Conversion Type (Conversion Source) 09/14/2023 09/15/2023 9:39 AM EDT us Connie Rodriguez MD CYTOLOGY ORDERABLES Edited Resul t - Final [address] [address] * Hepatitis C antibody, qualitative (11/11/2022 8:33 AM EDT) HCV NON-REACTIV E NON-REACTI VE [facility] Blood 11/11/2022 8:33 AM EDT 11/11/2022 11:30 AM EDT us Ashley Mcmillan COORDINATOR OF ONLINE PROGRAMS LAB BLOOD BKR ORDERABLES Fi nal Result [facility] [address] [place] [address] * ENDOSCOPY, COLON (08/28/2018 11:20 AM EDT) Narrative Transcriptions Yusef Meeks MD - 08/28/2018 11:20 AM EDT Patient Name: Willis Butler Attending MD:: YUSEF MEEKS MD, Procedure Date: 08/28/2018 11:20 AM Date of : 1965 Age: 53 Admit Type: Outpatient Gender: Female Room: [place] [address] Referring MD: LAURO SPARKS DO Exam Type: Colonoscopy Indications: Screening for colorectal malignant neoplasm Medications: Monitored Anesthesia Care Procedure: Informed consent was obtained from the patient after discussion of the indications, limitations,alternatives, benefits, and risks of the procedure. Risksspecifically discussed include but are not limited to medication reactions, missed lesions, bleeding, perforation, orthe need for emergent surgery. Throughout the procedure, the patient's blood pressure, pulse, end-tidal CO2, and oxygen saturations were monitored continuously. The Olympus pediatric variable colonoscope [id number]-[id number] was introduced through the anus and advanced to thececum, identified by appendiceal orifice and ileocecal valve.The colonoscopy was performed without difficulty. Thepatient tolerated the procedure well. The quality of the bowel preparation was excellent. The quality of the bowel preparation was evaluated using the BBPS (Baird Bowel Preparation Scale) with scores of: Right Colon = 3, Transverse Colon = 3 and Left Colon = 3 (entire mucosa seen well with no residual staining, small fragments of stool or opaque liquid). The total BBPS score equals9. Complications: No immediate complications. Estimated blood loss:None. Findings: The perianal and digital rectal examinations werenormal. Internal hemorrhoids were found during retroflexion.The hemorrhoids were mild. The exam was otherwise normal throughout the examined colon. Impression: - Internal hemorrhoids. - No specimens collected. Recommendation: - Discharge patient to home. - Repeat colonoscopy in 10 years for screeningpurposes. YUSEF MEEKS MD, 08/28/2018 11:40:19 AM This report has been signed electronically. Number of Addenda: 0 Note Initiated On: 08/28/2018 11:20 AM Procedure Code(s): --- Professional --- 97840, Colonoscopy, flexible; diagnostic, including collection of specimen(s) by brushing or washing, when performed (separateprocedure) --- Technical --- 50198, Colonoscopy, flexible; diagnostic, including collection of specimen(s) by brushing or washing, when performed (separateprocedure) Diagnosis Code(s): --- Professional --- Z12.11, Encounter for screening for malignant neoplasm of colon K64.8, Other hemorrhoids --- Technical --- Z12.11, Encounter for screening for malignant neoplasm of colon K64.8, Other hemorrhoids CPT copyright 2016 [employer]. All rights reserved. The codes documented in this report are preliminary and upon senior research associate reviewmay be revised to meet current compliance requirements. [address] [place], [place] [id number] us Lauro Sparks DO GI PROCEDURE ORDERABLES Final Re sult * (ABNORMAL) Lipid panel (08/09/2018 8:44 AM EST) HDL 53 mg/dL [facility] Comment: Interpretation <40 mg/dL: Low HDL cholesterol (major risk factor for CHD) Greater than or equal to 60 mg/dL: High HDL cholesterol ( negative risk factor for CHD) HDL - cholesterol is affected by a number of factors, e.g. smoking, excerise, hormones, sex and age. CHOLESTEROL 210 0 - 240 mg/dL [facility] TRIGLYCERIDES 109 30 - 160 mg/dL [facility] LDL 135(H) 50 - 129 mg/dL [facility] Comment: LDL levels in terms of risk for coronary heart disease: <100 mg/dL: Optimal 100-129 mg/dL: Near or above optimal 130-159 mg/dL: Borderline high 160-189 mg/dL: High >190 mg/dL: Very High CARDIAC RISK RATIO 4.0 3.3 - 4.4 [facility] Blood 08/09/2018 8:44 AM EST 08/09/2018 8:47 AM EST us Ashley Mcmillan COORDINATOR OF ONLINE PROGRAMS LAB BLOOD BKR ORDERABLES Fi nal Result [facility] [address] [place] [address] from Last 3 Months or Most Recently Relevant to Health Maintenance Insurance [facility] HMO [address] [place], [place] [address] [place], [place] [address]O [facility] O Care Teams Rotary Rig Engine Operator Relationship Specialty Start Date End Date Lauro Sparks DO [email or web address] PCP - General 06/09/17 Additional Source Comments The information contained in this document represents components of the legal health record. It is not the complete legal health record.[facility]
--- OUTSIDE RECORDS SUMMARY | 2025-05-07 10:20 | XMS_ITS | Encounter Summary ---
Author Organization [facility] Address [address] [facility] [address] [place] [address] Phone Care Team Providers Care Piercing Mill Operator Name Role Phone Figueroa Rudolph DO Primary Care Provider [phone] Encounter Details Date Type Department Care Team (Latest Contact Info) Description 08/22/2023 Transcribe Orders Virtual Department [address] [place] [address] Astrid Salas PA [address] [place] [address] [place] [address] Other chest pain (Primary Dx) Social History [...] st Contact Info) Description 10/31/2024 Procedure Pass [address] [address] 05/28/2025 9:30 AM EST Appointment [address] [address] Figueroa Rudolph DO [address] [facility] [place] [address] [email or web address] documented as of this encounter Visit Diagnoses Diagnosis Other chest pain- Primary documented in this encounter Care Teams Piercing Mill Operator Relationship Specialty Start Date End Date Figueroa Rudolph DO PCP - General 06/09/17 documented as of this encounter Additional Source Comments The information contained in this document represents components of the legal health record. It is not the complete legal health record.[facility]
--- OUTSIDE RECORDS SUMMARY | 2025-05-07 10:20 | XMS_ITS | Continuity of Care Document ---
Author Organization [facility] Address [address] [address] Assessment No assessment recorded. Plan of Treatment Reminders Order Date Submit Date Provider Last Modified By Organization Details Last Modified Time Details Appointments ANNUAL EXAM 2024 09:00A M RANDALL STEWART Not available Not available Not available ANNUAL EXAM 2025 09:00A M RANDALL STEWART Not available Not available Not available Lab CMP, serum or plasma 2024 025 [facility], [address] [place] [address], [id number], 05/07/2025 09:30:51 CBC w/ auto diff 2024 025 [facility], [address] [place] [address], [id number], 05/07/2025 09:30:50 lipid panel, blood 2024 025 [facility], [address] [place] [address], [id number], 05/07/2025 09:30:51 hemoglobi n A1c, QN, blood 2024 025 [facility], [address] [place] [address], [id number], 05/07/2025 09:30:51 Referral None recorded. Procedures None recorded. Surgeries None recorded. Imaging None recorded. Medication Orders None recorded. Patient TargetsNo targets recorded. Patient InstructionsNo instructions recorded. Reason for Referral None Reported. Problems Name Problem SNOMED Code Status Onset Date Resolution Date Notes Provider Name and Address Organization Details Recorded Time Ventricu lar prematur e beats 44173917 Active 2018 Frequent Kaleigh hernandez [facility] 9 15:50:52 History of chickenp ox 598916380 Active 2018 Kaleigh hernandez [facility] 9 15:53:23 Normal grief reaction 283928768 Active 2022 RANDALL STEWART [address] [place] [address], [phone], [facility] 3 14:31:18 Insomnia 092979132 Active 2022 RANDALL STEWART [address] [place] [address], [address], [facility] 3 14:31:35 Night sweats 62342186 Active 2022 RANDALL STEWART [address] [place] [address], [phone], [facility] 3 12:30:52 Atypical chest pain 102952662 Active 2023 RANDALL STEWART [address] [place] [address], [address], [facility] 4 15:13:41 Cardiova scular stress test abnormal 191356088 Active 2023 RANDALL STEWART [address] [place] [address], [address], [facility] 4 11:13:02 Electroc ardiogra m abnormal 439227370 Active 2023 RANDALL STEWART [address] [place] [address], [phone], [facility] 4 14:04:38 Problem Notes None recorded. Procedures Surgical History Date Name Laterality Status Provider Name and Address Organization Details Recorded Time 08/29/19 19 Colonoscopy completed Hanna Bergman [facility] 08/29/2018 08:59:47 09/05/19 18 Most Recent Mammogram completed Ashley Mcmillan NP, S [address] [place] [address], [address], [facility] 08/08/2018 09:38:54 06/06/19 17 Date of Last Pap Smear completed Ashley Mcmillan NP, S [address] [place] [address], [address], [facility] 08/08/2018 09:37:52 Breast Biopsy completed Ashley wheeler NP, S [address] [place] [address], [address], [facility] 08/08/2018 09:37:30 extraction of wisdom tooth completed Ashley Mcmillan NP, S [address] [place] [address], [address], [facility] 08/08/2018 09:40:52 Imaging Results None recorded. Procedure Notes None recorded. Medical Equipment None Reported. Allergies Allergen ID Allergen Name Allergen Category Reaction Reaction Severity Criticality Documentation Date Start Date Code Code System Note Provider Name and Address Organization Details Recorded Time 67567 honey bee venom environme nt Not available Not available Not available 05/07/20252023 77382 7 RxNorm Not Available liza - External Data Service - prod 5 03:44:46 No known drug allergies Medications Name [...] Updated DateTime 5 157.48 cm 24.7 kg/m2 74025.9 7 g 70 /min 98 % 120/70 mm[Hg] Chyna Ross [facility] 09:00:49 Social History Question Answer Notes LastModified by Organizat ion Details LastModified Time Tobacco Smoking Status Former Smoker smoked in high school Kaleigh [facility] 08/08/2018 09:33:48 What Was The Date Of Your Most Recent Tobacco Screening? 05/07/2025 [email or web address] Information not available 05/07/2025 Sex: Female Functional [...] available 08/07 16:00:07 Medical History Condition Response Allergies/Hayfever Y Heart Problems N Coronary Artery Disease N Gout N Blood Diseases N Kidney Stones N Hyperthyroidism N Blood Transfusion N Breast Cancer N Thyroid Problems N GI Problems N Hypothyroidism N COPD N Depression N Defects or Inherited Disease N Eating Disorder N Skin Problems N Anemia N Difficulty Swallowing N Constipation N Anesthesia Complications N Diabetes N Anxiety Disorder N Muscle, Joint, or Bone Problems N Obesity N Seizures/Epilepsy N Arthritis N Infertility N Tuberculosis N Congestive Heart Failure (CHF) N Eczema N Cancer N Abuse/Domestic Violence N Diverticulitis N Varicosities N Stroke N Asthma N Bladder or Kidney Problems N Reflux/GERD N High Cholesterol N Hepatitis N Liver Disease N Heart Disease N Pulmonary Embolism N Headaches N Fibromyalgia N Hypertension N Chicken Pox Y Kidney Disease N Gynecological History Statement/Question Response If Post [...] ICD10 Code Diagnosis IMO Codes Diagnosis Note [id number] DO [facility] [address] [facility],[place] [address] 05/07/2025 08:53:49 05/07/2025 09:30:23 General examination of patient [id number] Z00.00 [id number] no concerns today Health Concerns Section Related Observation LastModified by Organization Detai ls LastModified Time None Recorded Concern Status LastModified by Organization Details LastModified Time None Recorded Payers Encounter Date Sequence Insurance Name Policy Number Policy Dasilva Covered Member ID Dasilva Member ID Guarantor Name 05/07/2025 1 [facility] [id number] Carly Liang [id number] Carly Liang Notes Date Note Type Note Provider Name a nd Address Organization Details Recorded Time 5 text/html Annual WellnessReported by PatientSocial/Behavio ral [...] is excellent MM scheduled 05/28/25 RANDALL STEWART [address] [place] [address], [phone], [facility] 05/07/2025 09:28:35 OBGyn Episode No OBEpisode recorded.
--- OUTSIDE RECORDS SUMMARY | 2025-05-07 10:20 | XMS_ITS | Encounter Summary ---
Author Organization [facility] Address [address] [place] [address] [place] [address] Phone Care Team Providers Care Metal Box Maker Name Role Phone Figueroa Rudolph DO Unavailable Dimple Mckeon HOME HEALTH SCHEDULER Unavailable Kemar Molina MD Unavailable [phone] Sravani Gutiérrez HOME HEALTH SCHEDULER Unavailable [phone] Bigg Romero MD Unavailable Ana Law DO Unavailable Lan Oropeza MD Unavailable Arnoldo Jones MD Unavailable [phone] Clotilde Mclaughlin MD Unavailable Fgiueroa Rudolph DO Primary Care Provider [phone] Encounter Details Date Type Department Care Team (Late Contact Info) Description 08/28/2018 Procedure Pass [facility] Admitting Dept Virtual Department [address] [place] [id number] Social History Tobacco Use Types Packs/Day Years [...] st Contact Info) Description 10/31/2024 Procedure Pass [facility], [address] [address] 05/28/2025 9:30 AM EST Appointment [address] [address] Figueroa Rudolph DO [address] [place] [address] documented as of this encounter Visit Diagnoses Not on filedocumented in this encounter Additional Health Concerns Infection Onset Date Last Indicated Resolved Time CoV-Risk 06/30/2021 06/30/2021 07/01/2021 4:29 PM EST CoV-Presumed 06/30/2021 06/30/2021 07/21/2021 1:22 AM EST CoV-Risk 09/23/2022 09/23/2022 09/24/2022 4:03 PM EDT COVID-19 09/23/2022 09/23/2022 10/14/2022 1:21 AM EDT documented as of this encounter Care Teams Metal Box Maker Relationship Specialty Start Date End Date Figueroa Rudolph DO [address] [place] [address] PCP - General 06/09/17 Figueroa Rudolph DO [address] [place] [address] Historical LMR Provider 03/21/17 06/13/21 Dimple Mckeon NP [address] [place] [address] Historical LMR Provider 03/21/17 2 Kemar Molina MD NPI: [id number] [place] [address] [email or web address] Historical LMR Provider 03/21/17 06/13/21 Sravani Gutiérrez NP [address] [place] [address] [email or web address] Historical LMR Provider 03/21/17 2 Bigg Romero MD [address] [address] [email or web address] Historical LMR Provider 03/21/17 06/13/21 Ana Law DO [address] [place] [address] Historical LMR Provider 03/21/17 2 Lan Oropeza MD [address] [place] [phone] Historical LMR Provider 03/21/17 2 Arnoldo Jones MD [address] [place] [address] Historical LMR Provider 03/21/17 2 Clotilde Mclaughlin MD [address] [address] [email or web address] Historical LMR Provider 03/21/17 06/13/21 documented as of this encounter Additional Source Comments The information contained in this document represents components of the legal health record. It is not the complete legal health record.[facility]
--- OUTSIDE RECORDS SUMMARY | 2025-05-07 10:20 | XMS_ITS | Encounter Summary ---
Author Organization [facility] Address [address] [place] [address] [place] [address] Phone Care Team Providers Care Ammonia Distiller Name Role Phone Figueroa Rudolph DO Unavailable Dimple Mckeon CHARGE MASTER ANALYST Unavailable Kemar Molina MD Unavailable [phone] Sravani Gutiérrez CHARGE MASTER ANALYST Unavailable [phone] Bigg Romero MD Unavailable GillettAna klein DO Unavailable Lan Oropeza MD Unavailable Arnoldo Jones MD Unavailable [phone] Clotilde Mclaughlin MD Unavailable Figueroa Rudolph DO Primary Care Provider [phone] Encounter Details Date Type Department Care Team (Late st Contact Info) Description 10/09/2018 Ancillary Orders [facility] [address] [place] [address] Connie Rodriguez MD [address] [facility], [address] [place] [address] [email or web address] Abnormal mammogram Social History Tobacco Use Types [...] st Contact Info) Description 10/31/2024 Procedure Pass [address] [address] 05/28/2025 9:30 AM EST Appointment [address] [address] Figueroa Rudolph DO [address] [facility] [place] [address] [email or web address] documented as of this encounter Results * BI US BREAST LIMITED (LEFT) (10/10/2018 3:05 PM EDT) Anatomical Region Laterality Modality Breast Left, Breast Bilateral Left Ul trasound 10/10/2018 2:51 PM EDT Impressions 10/10/2018 3:16 PM EDT Benign left breast cyst accounting for the mammographic findings. BI-RADS CATEGORY 2 - BENIGN POS - [id number] Narrative 10/10/2018 3:16 PM EDT HISTORY: As above. COMPARISON: Screening mammogram 10/05/2018. LEFT BREAST ULTRASOUND FINDINGS: Imaging was obtained of the upper outer quadrant to correspond to mammographic findings. At 2-3 o'clock 4 cm from the nipple are multiple simple appearing cysts with the dominant one measuring 2 cm which corresponds to mammogram findings. Procedure Note Angeline Robles MD - 10/10/2018 HISTORY: As above. COMPARISON: Screening mammogram 10/05/2018. LEFT BREAST ULTRASOUND FINDINGS: Imaging was obtained of the upper outer quadrant to correspond tomammographic findings. At 2-3 o'clock 4 cm from the nipple are multiplesimple appearing cysts with the dominant one measuring 2 cm whichcorresponds to mammogram findings. IMPRESSION: Benign left breast cyst accounting for the mammographic findings. BI-RADS CATEGORY 2 - BENIGN POS - [id number] Connie Rodriguez MD IM US BREAST Final Result documented in this encounter Visit [...] documented as of this encounter Care Teams Ammonia Distiller Relationship Specialty Start Date End Date Figueroa Rudolph DO [address] [place] [address] [email or web address] PCP - General 06/09/17 Figueroa Rudolph DO [address] [place] [address] [email or web address] Historical LMR Provider 03/21/17 06/13/21 Dimple Mckeon NP [address] [place] [address] Historical LMR Provider 03/21/17 2 Kemar Molina MD [address] [place] [address] Historical LMR Provider 03/21/17 06/13/21 Sravani Gutiérrez NP [address] [place] [address] [email or web address] Historical LMR Provider 03/21/17 2 Bigg Romero MD [address] [address] [email or web address] Historical LMR Provider 03/21/17 06/13/21 Ana Law DO [address] [place] [address] Historical LMR Provider 03/21/17 2 Lan Oropeza MD [address] [place] [phone] Historical LMR Provider 03/21/17 2 Arnoldo Jones MD [address] [place] [address] Historical LMR Provider 03/21/17 2 Clotilde Mclaughlin MD [address] [address] [email or web address] Historical LMR Provider 03/21/17 06/13/21 documented as of this encounter Additional Source Comments The information contained in this document represents components of the legal health record. It is not the complete legal health record.[facility]
[2025-05-07 13:32] LABS: MANUAL DIFF FLAG NO
[2025-05-07 13:40] LABS: Hematocrit 39.1 % (37.0-47.0); Hemoglobin 12.9 g/dl (12.0-16.0); Imm Gran Abs Auto 0.01 X10*3/uL (0.00-0.03); Imm Gran Pct Auto 0.2 % (0.0-0.4); Lymphocytes Absolute Auto 1.9 X10*3/uL (1.2-4.9); Mean Corpuscular HGB Conc 33.0 g/dl (31.0-35.0); Mean Corpuscular Hemoglobin 29.1 pg (27.0-33.0); Mean Corpuscular Volume 88.3 fL (80.0-98.0); NRBC Abs Auto 0.000 X10*3/uL (0.0-0.012); NRBC Pct Auto 0.0 /100WBC (0.0-0.2); Platelet Count 205 X10*3/uL (160-400); Red Blood Count 4.43 X10*6/uL (4.20-5.50); White Blood Count 5.1 X10*3/uL (4.8-10.8)
[2025-05-07 13:50] LABS: Alanine Aminotransferase 28 U/L (0-31); Albumin Level 4.9 g/dL (3.5-5.0); Alkaline Phosphatase 70 U/L (39-117); Anion Gap 14 (12-20); Aspartate Amino Transferase 27 U/L (5-31); Blood Urea Nitrogen 22 mg/dL (9-16); Calcium 10.3 mg/dL (8.4-10.2); Carbon Dioxide 27 mmol/L (22-29); Chloride 106 mmol/L (96-108); Cholesterol 248 mg/dL (<200); Estimated Glomerular Filt Rate 51; HDL Cholesterol 54 mg/dL (>40); Potassium 4.5 mmol/L (3.3-5.1); Sodium 142 mmol/L (135-145); Total Protein 7.5 g/dL (6.5-8.0); Triglycerides 112 mg/dL (<150)
== END 2025-05-07 09:34 | disposition home or self-care (01) ==
LOC: HO.MANLDS 09:33
PROVIDERS: Visit Provider Physician Assistant
DX: Z00.00 Encounter for general adult medical examination without abnormal findings (principal); Z13.1 Encounter for screening for diabetes mellitus; Z13.0 Encounter for screening for diseases of the blood and blood-forming organs and certain disorders involving the immune mechanism; Z13.6 Encounter for screening for cardiovascular disorders
CPT/HCPCS: 36415; 80053; 80061; 83036; 85025